=== PATIENT | male | born 1955 ===

== ENCOUNTER 2022-07-01 07:32 | Day surgery (SDC) | payer MEDICARE ==
[~2022-07-01] VITALS: Ht 180.3 cm; Wt 69.7 kg
[2022-07-01] MEDS ORDERED: Crestor20 MG PO (08:19)
--- NOTE | 2022-07-01 08:48 | NUR ---
07/01/22 0848 JOSE LUIS LOMBARDO 10MLS OF LIDOCAINE MIXED WITH 10MLS OF ROPIVACAINE 0.5% TO CREATE A LOCAL SOLUTION OF ROPIVACAINE 0.5% WITH LIDOCAINE 1% 1:1. LOCAL POURED ONTO STERILE FIELD FOR USE DURING CASE.
--- NOTE | 2022-07-01 10:09 | NUR ---
07/01/22 1009 JADEN BAY INSTRUCTED PT AND HOW TO TAKE CARE OF SHELBY DRAIN. PAPER GIVEN WELL.
== END 2022-07-01 10:25 | disposition home or self-care (01) ==
LOC: ORSCSDS 07:32
PROVIDERS: Surgery
PROC: 0JB70ZZ Excision of Back Subcutaneous Tissue and Fascia, Open Approach (ICD-10-PCS; principal; 2022-07-01 08:45)
DX: D17.1 Benign lipomatous neoplasm of skin and subcutaneous tissue of trunk (principal); E78.5 Hyperlipidemia, unspecified; Z80.0 Family history of malignant neoplasm of digestive organs; Z79.899 Other long term (current) drug therapy
CPT/HCPCS: 88304; J0690; J2001; J2250; J2704; J2795; J3010; J7120

== ENCOUNTER → 2022-12-22 | Outpatient (CLI) | payer MEDICARE ==
[~2022-12-22] MED LIST: Crestor20 MG PO
[2022-12-22 15:10] LABS: Albumin, Blood 4.2 g/dL (3.4-5.0); Albumin/Globulin Ratio 1.6 (0.8-1.8); Bilirubin, Total 0.6 mg/dL (0.1-1.0); Bun/Creatinine Ratio 19.6 (12.0-20.0); Calcium, Blood 9.7 mg/dL (8.5-10.1); Creatinine, Blood 0.92 mg/dL (0.60-1.20); Globulin, Blood 2.7 g/dL (2.2-4.0); Potassium, Blood 4.1 mmol/L (3.5-5.5); Total Protein, Blood 6.9 g/dL (6.4-8.2)
== END | disposition home or self-care (01) ==
LOC: LAB SHORT 09:29 → LAB 09:29
PROVIDERS: Internal Medicine
DX: R73.09 Other abnormal glucose (principal)
CPT/HCPCS: 80053; 83036